=== PATIENT | male | born 1960 | race Caucasian/White ===

== ENCOUNTER 2024-05-10 05:58 | Emergency (ER) | payer OTHER, SELFPAY ==
[2024-05-10 05:59] VITALS: BP 176/96; PULSE 103; RESP 18; TEMP 35.9; O2SAT 98; BMI 22.8
--- NOTE | 2024-05-10 06:18 | RAD_ITS ---
INDICATION: CP EXAMINATION/TECHNIQUE: X-RAY - XR Chest 2 Views COMPARISON: No relevant prior comparison study available FINDINGS: LINES/DEVICES: None. LUNGS: No consolidation, edema or effusion. No pneumothorax. MEDIASTINUM AND CARDIOVASCULAR STRUCTURES: Cardiac silhouette not enlarged. Central airways and mediastinal contour are unremarkable. BONES AND SOFT TISSUES: Unremarkable. RAD/Chest PA and Lateral IMPRESSION: No radiographic evidence of acute cardiopulmonary disease. Electronically Signed: Rajni Wood MD at 7:03 EDT ,
[2024-05-10] MEDS: 0.9% Normal Saline (1000mL) 1,000 ML 999 ML IV (06:29)
[2024-05-10] MEDS: Aspirin 325 MG Tablet PO (06:29)
[2024-05-10] MEDS: Morphine 4 MG/ML Syringe IV (06:29)
[2024-05-10] MEDS: Ondansetron 4 MG/2 ML Vial IV (06:29)
[2024-05-10 06:32] VITALS: BP 142/92; PULSE 95; RESP 14; O2SAT 97
[2024-05-10 06:34] LABS: Absolute Lymphocyte Count 3.08 X10^3/uL (0.83-4.51); Absolute Neutrophil Count 5.3 X10^3/uL (2.0-7.7); Basophil# 0.22 X10^3/uL; Basophil% 2.1 % (0-1); Eosinophil# 0.37 X10^3/uL; Eosinophils% 3.6 % (0-5); Hematocrit 41.5 % (40-54); Lymphocyte # 3.08 X10^3/ul (0.83-4.51); Lymphocyte % 29.9 % (19-41); Mean Corp Hgb Conc 33.7 g/dL (32-36); Mean Corpuscular Hgb 32.5 pg (27.0-32.0); Mean Corpuscular Volume 96.3 fL (80-94); Mean Platelet Vol. 9.4 fl (6.2-12.0); Monocyte# 1.21 X10^3/uL; Monocyte% 11.7 % (0-10); NRBC Flagged by Analyzer 0 % (0-5); Neutrophil # 5.32 X10^3/uL (2.7-7.7); Neutrophil % 51.6 % (47-70); Platelet Count 303 K/mm3 (150-450); RBC Distribution Width SD 50.2 fl (35.1-43.9); Red Blood Count 4.31 M/mm3 (4.6-6.2); White Blood Count 10.3 K/mm3 (4.4-11.0)
[2024-05-10 06:44] LABS: D-Dimer Quantitative (DVT/PE) < 0.27 FEU/ug/m (0.27-0.49)
--- NOTE | 2024-05-10 06:53 | EX.ED.DYSGE1 ---
HPI <Dr. Gaetano Ramos DO - Last Filed: 05/11/24 02:27> History of Present Illness Chief Complaint: Chest Pain Informant: patient Narrative Narrative: Patient is a 63-year-old male with past medical history of hyperlipidemia and smoking who states he got up this morning as he normally does and was driving to work when he developed some midsternal to left-sided chest discomfort with radiation towards his neck. He denies any previous history of NC but states that both of his parents and brother all had heart attacks. He denies any recent surgery travel or history of DVT/PE. However based on the sudden onset of his chest discomfort coupled with nausea he was concerned this could be cardiovascular and therefore comes in for evaluation [facility] <Dr. Gaetano Ramos DO - Last Filed: 05/11/24 02:27> [facility] Medical History Right groin hernia Arthritis CVA (cerebral vascular accident) Home Medications ?Medication ?Instructions ?Recorded ?Last Taken ?Type meloxicam .ROUTE 05/10/24 Unknown History Allergy/AdvReac Type Severity Reaction Status Date / Time No Known Allergies Allergy Verified 05/10/24 06:03 Social History Smoking Status: Current every day smoker tobacco type: cigarettes ROS <Dr. Gaetano Ramos, DO - Last Filed: 05/11/24 02:27> ROS ED Constitutional Constitutional ED: Denies chills or fever(s) Eyes Eyes: Denies blurry vision or change in vision ENT ENT ED: Denies sore throat Cardiovascular Cardiovascular: Reports chest pain; Denies palpitations or racing heartbeat Respiratory/Chest Respiratory/Chest: Denies cough or dyspnea Gastrointestinal Gastrointestinal: Reports nausea; Denies abdominal pain, diarrhea or vomiting Genitourinary Genitourinary ED: Denies dysuria Musculoskeletal Musculoskeletal: Reports neck pain; Denies back pain or myalgias Integumentary Denies rash Neurologic Neurologic: Denies headache(s) Hematologic/Lymphatic Hematologic/Lymphatic: Denies easy bleeding or easy bruising EXAM <Dr. Gaetano Ramos DO - Last Filed: 05/11/24 02:27> Physical Exam Const Vital Signs: 05/10/24 05:59 05/10/24 05:59 05/10/24 06:32 Temperature 96.7 F L Temperature Source Temporal Pulse Rate 103 H 95 Respiratory Rate 18 14 Respiratory Effort Normal Non-Labored Blood Pressure 176/96 H 142/92 H Blood Pressure Mean 122 108 Pulse Ox 98 97 Oxygen Delivery Method Room Air Room Air 05/10/24 07:00 05/10/24 08:00 05/10/24 09:00 Temperature Temperature Source Pulse Rate 68 54 L 59 L Respiratory Rate 12 12 12 Respiratory Effort Blood Pressure 157/88 H 128/79 H 131/101 H Blood Pressure Mean 111 95 111 Pulse Ox 98 99 97 Oxygen Delivery Method Room Air Room Air Room Air 05/10/24 09:25 Temperature 97.9 F Temperature Source Pulse Rate 64 Respiratory Rate 18 Respiratory Effort Blood Pressure 129/76 H Blood Pressure Mean 93 Pulse Ox 98 Oxygen Delivery Method Positive well nourished and well developed General Appearance ED: well developed; Negative for pallor HEENT Reports moist mucous membranes HEENT Narrative: No tongue or lip swelling no oral lesions no airway edema or compromise No secondary findings in the posterior pharynx to suggest infection Eyes PERRL and EOMs intact bilaterally General Eye ED: Negative for pale conjunctiva or scleral icterus Neck supple Neck Narrative: No nuchal rigidity or meningeal signs No carotid bruit noted Chest Wall Chest Narrative: There is reproducible midsternal to left-sided chest discomfort upon palpation No bony deformity or crepitance Resp normal respiratory effort Resp Narrative: Breath sounds are diminished throughout with faint wheeze and rhonchi in the bilateral lower lobes consistent with history of smoking. No nasal flaring retractions tachypnea or accessory muscle use Cardio regular rhythm Rate: tachycardic and other Other Details: Tachycardic rate with regular rhythm Radial and carotid pulses are equal and symmetric GI normal to inspection, nondistended, normoactive bowel sounds, non-tender, non-distended and no masses GI Narrative: No voluntary guarding or rigidity or pulsatile mass Auscultation: normoactive bowel sounds Palpation: soft Extremity normal to inspection Extremity Narrative: No asymmetric edema no pitting edema negative Homans' sign bilaterally Neuro oriented x3, CN's II-XII intact bilaterally and no sensory deficits noted Sensorium / Orientation: alert Motor Exam: strength 5/5 throughout Psych mental status grossly normal Skin no rashes or lesions noted General Skin Exam: Negative for jaundice or pallor <Dr. Ezequiel Conte, DO - Last Filed: 05/10/24 09:19> Physical Exam Const Vital Signs: 05/10/24 05:59 05/10/24 05:59 05/10/24 06:32 Temperature 96.7 F L Temperature Source Temporal Pulse Rate 103 H 95 Respiratory Rate 18 14 Respiratory Effort Normal Non-Labored Blood Pressure 176/96 H 142/92 H Blood Pressure Mean 122 108 Pulse Ox 98 97 Oxygen Delivery Method Room Air Room Air 05/10/24 07:00 05/10/24 08:00 05/10/24 09:00 Temperature Temperature Source Pulse Rate 68 54 L 59 L Respiratory Rate 12 12 12 Respiratory Effort Blood Pressure 157/88 H 128/79 H 131/101 H Blood Pressure Mean 111 95 111 Pulse Ox 98 99 97 Oxygen Delivery Method Room Air Room Air Room Air 05/10/24 09:25 Temperature 97.9 F Temperature Source Pulse Rate 64 Respiratory Rate 18 Respiratory Effort Blood Pressure 129/76 H Blood Pressure Mean 93 Pulse Ox 98 Oxygen Delivery Method MDM <Dr. Gaetano Ramos, DO - Last Filed: 05/11/24 02:27> [facility] Narrative Medical decision making narrative: Patient arrived to the ER slightly tachycardic and hypertensive. He reported that his chest discomfort began spontaneously while driving. He does have significant family history of cardiovascular disease. As the cause of his chest discomfort could be acute coronary syndrome versus cardiac dysrhythmia versus pulmonary embolus versus lung pathology such as pneumonia or pneumothorax or pneumomediastinum I did elect to perform basic laboratory studies. Chest x-ray revealed no lung pathology such as pneumonia pneumothorax or widened mediastinum to suggest dissection. D-dimer was also negative going against PE or dissection. The patient's initial troponin is 6 however as his chest discomfort started relatively soon prior to his arrival he will need a 2-hour delta troponin to ensure that there is no signs of active cardiac event. As repeat troponin is still pending he will be signed out to the day physician Dr. Conte. History & Record Review Discussion w/independent historian: Patient Lab Data Attestation: I reviewed the patient's lab results. Labs: Laboratory Results - last 24 hr 05/10/24 05/10/24 06:00 08:07 WBC 10.3 RBC 4.31 L Hgb 14.0 Hct 41.5 MCV 96.3 H MCH 32.5 H MCHC 33.7 RDW Std Deviation 50.2 H RDW Coeff of Donna 14.0 Plt Count 303 MPV 9.4 Immature Gran % (Auto) 1.100 H Neut % (Auto) 51.6 Lymph % (Auto) 29.9 [place] % (Auto) 11.7 H Eos % (Auto) 3.6 Baso % (Auto) 2.1 H Absolute Neuts (auto) 5.3 Absolute Lymphs (auto) 3.08 Nucleated RBC % 0 D-Dimer Quant (PE/DVT) < 0.27 L Sodium 136 Potassium 3.7 Chloride 105 Carbon Dioxide 27.0 Anion Gap 4 L BUN 23 H Creatinine 1.05 Estim Creat Clear Calc 57.20 Est GFR (MDRD) Af Amer 91 Est GFR (MDRD) Non-Af 76 BUN/Creatinine Ratio 21.9 H Glucose 127 H Calcium 8.8 Magnesium 2.0 Troponin I High Sens 6 7 Radiography Diagnostic Testing: Clinical Impression(s) from Imaging Studies Chest X-Ray 05/10/24 06:18 IMPRESSION: No radiographic evidence of acute cardiopulmonary disease. Electronically Signed: Rajni Wood MD at 7:03 EDT Reading Location ID and State: [facility] / [place] Tel , Service support , 2 view chest x-ray as interpreted by the emergency medicine physician reveals hyperinflated lungs consistent with COPD but no infiltrate pneumothorax pleural effusion or widening of the mediastinum <Dr. Ezequiel Conte, DO - Last Filed: 05/10/24 09:19> [facility] Narrative Medical decision making narrative: Patient arrived to the ER slightly tachycardic and hypertensive. He reported that his chest discomfort began spontaneously while driving. He does have significant family history of cardiovascular disease. As the cause of his chest discomfort could be acute coronary syndrome versus cardiac dysrhythmia versus pulmonary embolus versus lung pathology such as pneumonia or pneumothorax or pneumomediastinum I did elect to perform basic laboratory studies. Chest x-ray revealed no lung pathology such as pneumonia pneumothorax or widened mediastinum to suggest dissection. D-dimer was also negative going against PE or dissection. The patient's initial troponin is 6 however as his chest discomfort started relatively soon prior to his arrival he will need a 2-hour delta troponin to ensure that there is no signs of active cardiac event. As repeat troponin is still pending he will be signed out to the day physician Dr. Conte. 0915: In[place]. Patient signed out to me pending repeat troponin. Results are negative. Reevaluation states pain was still a 3 as it was when you get reevaluated states intermittent sharpness. Has no neck pain. No direct chest pain. He has no PE risk factors. His D-dimer is negative. I discussed with the patient atypical symptoms at this time. He will follow-up with his PCP further testing. Discussed return precautions with the patient. All questions were answered. Lab Data Labs: Laboratory Results - last 24 hr 05/10/24 05/10/24 06:00 08:07 WBC 10.3 RBC 4.31 L Hgb 14.0 Hct 41.5 MCV 96.3 H MCH 32.5 H MCHC 33.7 RDW Std Deviation 50.2 H RDW Coeff of Donna 14.0 Plt Count 303 MPV 9.4 Immature Gran % (Auto) 1.100 H Neut % (Auto) 51.6 Lymph % (Auto) 29.9 [place] % (Auto) 11.7 H Eos % (Auto) 3.6 Baso % (Auto) 2.1 H Absolute Neuts (auto) 5.3 Absolute Lymphs (auto) 3.08 Nucleated RBC % 0 D-Dimer Quant (PE/DVT) < 0.27 L Sodium 136 Potassium 3.7 Chloride 105 Carbon Dioxide 27.0 Anion Gap 4 L BUN 23 H Creatinine 1.05 Estim Creat Clear Calc 57.20 Est GFR (MDRD) Af Amer 91 Est GFR (MDRD) Non-Af 76 BUN/Creatinine Ratio 21.9 H Glucose 127 H Calcium 8.8 Magnesium 2.0 Troponin I High Sens 6 7 Radiography Diagnostic Testing: Clinical Impression(s) from Imaging Studies Chest X-Ray 05/10/24 06:18 IMPRESSION: No radiographic evidence of acute cardiopulmonary disease. Electronically Signed: Rajni Wood MD at 7:03 EDT , Discharge Plan Triage Chief Complaint: Chest Pain ED Provider: Gaetano Ramos Dx/Rx/DC Orders Clinical Impression: Nonspecific chest pain, Hyperlipidemia Instructions: ED Chest Pain, Uncertain Cause Prescriptions: No Action meloxicam .ROUTE Stand Alone Forms: Work / School Excuse Primary Care Provider: Ulises Donohue Referrals: [facility] Doctor,Out of [Non-Staff] - 3-5 Days Activity Restrictions/Additional Instructions: Cardiac workup negative ED. Chest x-ray negative in the ED. Follow-up with your doctor for further testing as outpatient. If symptoms recurs and worsens and concerning, return to the ED for reevaluation. Print Language: Slovenian Disposition Disposition: Home, Self Care Discharge Date/Time: 05/10/24 09:30
[2024-05-10 06:54] LABS: Anion Gap 4 (5-15); BUN 23 mg/dL (7-18); BUN/Creat Ratio 21.9 RATIO (10-20); Calcium,Total 8.8 mg/dL (8.5-10.1); Chloride 105 mmol/L (98-107); Creatinine, Serum 1.05 mg/dL (0.70-1.30); EST Glomerular Filtration Rate 76 mL/min (>60); Est Glom Filt Rate - Afr Amer 91 mL/min (>60); Glucose 127 mg/dL (74-106); Potassium 3.7 mmol/L (3.5-5.1); Sodium Level 136 mmol/L (136-145); Troponin-I HS 6 pg/mL (3.0-78.0)
[2024-05-10 07:00] VITALS: BP 157/88; PULSE 68; RESP 12; O2SAT 98
[2024-05-10 08:00] VITALS: BP 128/79; PULSE 54; RESP 12; O2SAT 99
[2024-05-10 08:32] LABS: Troponin-I HS 7 pg/mL (3.0-78.0)
[2024-05-10 09:00] VITALS: BP 131/101; PULSE 59; RESP 12; O2SAT 97
[2024-05-10 09:25] VITALS: BP 129/76; PULSE 64; RESP 18; TEMP 36.6; O2SAT 98
== END 2024-05-10 09:30 | disposition home or self-care (01) ==
PROVIDERS: Emergency Provider Emergency Medicine; PCP Family Medicine; Visit Provider Emergency Medicine
DX: R07.9 Chest pain, unspecified (principal); E78.5 Hyperlipidemia, unspecified; F17.210 Nicotine dependence, cigarettes, uncomplicated; Z86.73 Personal history of transient ischemic attack (TIA), and cerebral infarction without residual deficits
CPT/HCPCS: 71046; 80048; 83735; 84484; 85025; 85379; 93005; 96361; 96374; 96375; 99283; J7030; A4216; J2405